=== PATIENT | male | born 2000 | race African-American/Black ===

== ENCOUNTER 2023-05-15 17:01 | Emergency (ER) | payer OTHER ==
[2023-05-15] MEDS ORDERED: Benzonatate 100 MG CAP ONE (18:32)
== END 2023-05-15 19:21 | disposition home or self-care (01) ==
LOC: ERS 17:01
DX: K04.7 Periapical abscess without sinus (principal); J45.909 Unspecified asthma, uncomplicated; F17.290 Nicotine dependence, other tobacco product, uncomplicated
CPT/HCPCS: 99282